=== PATIENT | male | born 1980 | race Caucasian/White ===

== ENCOUNTER 2019-07-26 11:18 | Emergency (ER) | payer OTHER, BC ==
[~2019-07-26] VITALS: Ht 188 cm; Wt 111.1 kg
[~2019-07-26 11:18] MED LIST: HYDR1TAB94 PO
[2019-07-26] MEDS ORDERED: CYCL10 PO (12:43)
[2019-07-26] MEDS ORDERED: IBUP800 PO (12:43)
== END 2019-07-26 15:28 | disposition home or self-care (01) ==
LOC: ER 11:18
DX: S39.012A Strain of muscle, fascia and tendon of lower back, initial encounter (principal); X50.0XXA Overexertion from strenuous movement or load, initial encounter; Y99.0 Civilian activity done for income or pay
CPT/HCPCS: 72100; 99283-25